=== PATIENT | female | born 1975 | race Caucasian/White ===

== ENCOUNTER 2016-11-28 15:30 | Emergency (ER) | payer MEDICARE, MEDICAID ==
[~2016-11-28] VITALS: Ht 152.4 cm; Wt 98.0 kg
[2016-11-28] MEDS ORDERED: LAMICTAL100 MG PO (15:57)
[2016-11-28] MEDS ORDERED: LAMICTAL100 M1 PO (15:57)
[2016-11-28] MEDS ORDERED: ADDERALL 20 MG20 MG PO (15:59)
[2016-11-28] MEDS ORDERED: CYMBALTA60 M1 PO (15:59)
[2016-11-28] MEDS ORDERED: PRILOSEC40 MG PO (16:00)
[2016-11-28] MEDS ORDERED: RESTORIL30 MG PO (16:00)
[2016-11-28] MEDS ORDERED: LIPITOR40 MG PO (16:01)
[2016-11-28] MEDS ORDERED: SYNTHROID50 MCG PO (16:01)
[2016-11-28] MEDS ORDERED: ALBUTEROL0.63 MG/3 INH (16:01)
[2016-11-28] MEDS ORDERED: ADVAIR DIS14 PUFF/DI INH (16:01)
== END 2016-11-28 16:50 | disposition short-term general hospital (02) ==
LOC: ER 15:30
DX: R10.9 Unspecified abdominal pain (principal); Z79.899 Other long term (current) drug therapy; Z98.890 Other specified postprocedural states; Z88.2 Allergy status to sulfonamides
CPT/HCPCS: J2175